=== PATIENT | female | born 1945 | race Caucasian/White ===

== ENCOUNTER 2017-10-23 21:42 | Inpatient (IN) | payer OTHER, BC ==
[~2017-10-23] VITALS: Ht 152.4 cm; Wt 74.8 kg
[~2017-10-23 21:42] MED LIST: Ecotrin PO; Feosol PO; LIDODERM 5% P1 PATCH TD; OxyCONTIN PO; Percocet 5/325,Endoc PO; VIACTIV CALC1 TABLET PO
[2017-10-23 22:16] LABS: HEMATOCRIT 42.4 % (36.0-46.0); HEMOGLOBIN 14.7 G/DL (11.9-15.5); MCH 31.4 PG (29.0-34.0); MCHC 34.7 G/DL (30.0-36.0); MCV 90.6 FL (83-99); PLATELET COUNT 269 K/uL (156-360); RBC DIS.WIDTH-CV 12.8 % (11.8-14.6); RBC DIS.WIDTH-SD 42.4 % (39-53); RED BLOOD COUNT 4.68 M/uL (3.80-5.20); WHITE BLOOD COUNT 12.4 K/uL (4.1-10.2)
[2017-10-23 22:26] LABS: ALBUMIN 4.4 g/dL (3.2-4.8)
[2017-10-23 22:27] LABS: CHLORIDE 106 mEq/L (99-109); SODIUM 141 mEq/L (136-147)
[2017-10-23 22:28] LABS: ERTH.SED.RATE 36 MM/HR (0-30)
[2017-10-23 22:29] LABS: GLUCOSE 105 mg/dL (70-99); TOTAL PROTEIN 7.1 g/dL (6.4-8.3)
[2017-10-23 22:31] LABS: TOTAL BILIRUBIN 0.3 mg/dL (0.0-1.0)
[2017-10-23 22:32] LABS: ALKALINE PHOSPHATASE 73 IU/L (3-129)
[2017-10-23 22:33] LABS: CREATININE 0.8 mg/dL (0.6-1.3); GFR ESTIMATE (CALCULATED) > 59 mL/min/
[2017-10-23 22:34] LABS: AST (GOT) 14 IU/L (2-34); UREA NITROGEN (BUN) 11 mg/dL (9-23)
[2017-10-23 22:36] LABS: ALT (GPT) 12 IU/L (3-49)
[2017-10-24] MEDS ORDERED: CARBAMAZEPINE200 MG PO (01:59)
[2017-10-24 06:06] VITALS: BP 163/77
[2017-10-24 08:17] VITALS: BP 144/77
[2017-10-24 11:51] VITALS: BP 149/74
[2017-10-24 12:12] LABS: FOLIC ACID (FOLATE) 19.1 NG/ML (5.0-22.0)
[2017-10-24 20:32] VITALS: BP 141/69
[2017-10-24 23:21] VITALS: BP 131/63
[2017-10-25 03:31] VITALS: BP 149/69
[2017-10-25 08:23] VITALS: BP 131/66
[2017-10-25 17:25] VITALS: BP 138/65
[2017-10-25 19:54] VITALS: BP 157/74
[2017-10-25 23:27] VITALS: BP 130/63
[2017-10-26 07:53] VITALS: BP 160/80
[2017-10-26 16:30] VITALS: BP 138/72
[2017-10-26 23:26] VITALS: BP 122/71
[2017-10-27 07:24] VITALS: BP 131/72
[2017-10-27] MEDS ORDERED: DILAUDID4 MG PO (08:41)
[2017-10-27 16:21] VITALS: BP 171/77
[2017-10-28 01:00] VITALS: BP 134/89
[2017-10-28 08:19] VITALS: BP 190/87
[2017-10-28 16:04] VITALS: BP 143/77
[2017-10-28 19:45] VITALS: BP 137/77
[2017-10-28 23:36] VITALS: BP 124/78
[2017-10-29] VITALS (7 sets, daily range): BP systolic 143–214; BP diastolic 67–102
[2017-10-29 07:02] LABS: HEMATOCRIT 42.6 % (36.0-46.0); HEMOGLOBIN 14.1 G/DL (11.9-15.5); MCH 30.9 PG (29.0-34.0); MCHC 33.1 G/DL (30.0-36.0); MCV 93.4 FL (83-99); PLATELET COUNT 283 K/uL (156-360); RBC DIS.WIDTH-CV 13.1 % (11.8-14.6); RBC DIS.WIDTH-SD 44.5 % (39-53); RED BLOOD COUNT 4.56 M/uL (3.80-5.20); WHITE BLOOD COUNT 11.1 K/uL (4.1-10.2)
[2017-10-29 07:28] LABS: CHLORIDE 101 MEQ/L (99-109); CREATININE 0.8 MG/DL (0.6-1.3); GFR ESTIMATE (CALCULATED) > 59 mL/min/; GLUCOSE 133 mg/dL (70-99); POTASSIUM 4.5 MEQ/L (3.7-5.4); SODIUM 140 MEQ/L (136-147); UREA NITROGEN (BUN) 17 mg/dL (9-23)
[2017-10-30] VITALS (7 sets, daily range): BP systolic 71–148; BP diastolic 48–68
[2017-10-31 04:45] VITALS: BP 167/72
[2017-10-31 06:58] LABS: HEMATOCRIT 39.4 % (36.0-46.0); HEMOGLOBIN 12.8 G/DL (11.9-15.5); MCH 30.3 PG (29.0-34.0); MCHC 32.5 G/DL (30.0-36.0); MCV 93.1 FL (83-99); PLATELET COUNT 226 K/uL (156-360); RBC DIS.WIDTH-CV 13.2 % (11.8-14.6); RBC DIS.WIDTH-SD 45.5 % (39-53); RED BLOOD COUNT 4.23 M/uL (3.80-5.20); WHITE BLOOD COUNT 11.4 K/uL (4.1-10.2)
[2017-10-31 07:20] LABS: CHLORIDE 103 MEQ/L (99-109); CREATININE 0.8 MG/DL (0.6-1.3); GFR ESTIMATE (CALCULATED) > 59 mL/min/; GLUCOSE 103 mg/dL (70-99); POTASSIUM 4.1 MEQ/L (3.7-5.4); SODIUM 140 MEQ/L (136-147); UREA NITROGEN (BUN) 16 mg/dL (9-23)
[2017-10-31 08:17] VITALS: BP 136/65
[2017-10-31 11:35] VITALS: BP 139/73
[2017-10-31 15:42] VITALS: BP 141/72
[2017-10-31 19:33] VITALS: BP 171/77
[2017-10-31 21:14] VITALS: BP 135/74
== END 2017-10-31 21:38 | disposition short-term general hospital (02) | DRG 73 ==
LOC: EME 21:42 → EDOF 10-24 03:33 → ENRESERV 10-24 03:36 → CANRESERV 10-24 03:45 → ENRESERV 10-24 04:22 → 3EAST 10-24 04:28 → EDOF 10-24 04:28 → ENRESERV 10-24 04:45 → 3EAST 10-24 05:28
PROVIDERS: Emergency Medicine; Hospitalist; Internal Medicine
DX: G50.0 Trigeminal neuralgia (principal); H53.149 Visual discomfort, unspecified; H57.11 Ocular pain, right eye; I16.0 Hypertensive urgency; R50.9 Fever, unspecified; J98.11 Atelectasis; G93.6 Cerebral edema; D32.9 Benign neoplasm of meninges, unspecified; K59.00 Constipation, unspecified; E89.0 Postprocedural hypothyroidism; Z96.659 Presence of unspecified artificial knee joint; Z66 Do not resuscitate; Q28.3 Other malformations of cerebral vessels; Z88.2 Allergy status to sulfonamides; Z79.891 Long term (current) use of opiate analgesic
CPT/HCPCS: 70450; 70553; 71045; 80048; 80053; 81003; 82607; 82746; 85027; 85651; 87086; 94799; 99281; 99284; J1100; J1170; J1644; J1885; J2405; J2765; J3010; J7030; S0028